=== PATIENT | female | born 1995 | race Caucasian/White ===

== ENCOUNTER 2017-11-18 07:27 | Inpatient (IN) ==
--- OUTSIDE RECORDS SUMMARY | 2017-11-18 07:34 | External Medical Summary | Continuity of Care Document ---
:1995 Author Organization [facility] Address [address] [place], [place] [id number] Phone Support Name Relationship Address Phone Dianelys Braxton parent [phone] [place] [address] Allergies, Adverse Reactions, Alerts Substance Reaction Severity Status No Known Drug Allergies Unknown Active Medications Medication Instructions Dosage Effective Dates Status Comments (start - stop) 28 mg take 1 tablet by Not Available - Active iron-800 mcg oral route every tablet day Zantac 75 mg take 1 tablet by 75 MG - Active tablet oral route 2 times every day with glass of water as needed Problems Condition Effective Dates (start - stop) Clinical Status Encntr for suprvsn of normal first - preg, third trimester Encounter For Screening For - Streptococcus B 36 weeks gestation of - Encntr for suprvsn of normal first - preg, first trimester Less than 8 weeks gestation of - Encntr for suprvsn of normal first - preg, third trimester 32 weeks gestation of - Irregular Menses Oth related conditions, - second trimester Encntr for suprvsn of normal first - preg, second trimester 26 weeks gestation of - Matern care for oth or susp poor fetl - grth, 2nd tri, unsp 19 weeks gestation of - Low Lying Placenta Nos Or W/out - Hemorrhage, Second Trimester 30 weeks gestation of - Low Lying Placenta Nos Or W/out - Hemorrhage, Second Trimester Encntr for suprvsn of normal first - preg, second trimester 19 weeks gestation of - Low Lying Placenta Nos Or W/out - Hemorrhage, Second Trimester 28 weeks gestation of - Low Lying Placenta Nos Or W/out - Hemorrhage, Second Trimester 30 weeks gestation of - Encntr for suprvsn of normal first - preg, first trimester Less than 8 weeks gestation of - Encntr for suprvsn of normal first - preg, first trimester 10 weeks gestation of - Encntr for suprvsn of normal first - preg, second trimester 14 weeks gestation of - Encntr for suprvsn of normal first - preg, second trimester 23 weeks gestation of - Encntr for suprvsn of normal first - preg, third trimester 37 weeks gestation of - Encntr for suprvsn of normal first - preg, third trimester 34 weeks gestation of - Encntr for suprvsn of normal first - preg, third trimester 38 weeks gestation of - Dysmenorrhea, Secondary - Active Procedures Procedure Date OB Visit No Charge Results Test Name Date and Time Measure Units Reference Range Abnormal Flag Comments Panel Description: Strep Gp B Culture Strep Gp B Negative Negative Centers for Disease Control Culture 11:53:00 and Prevention (CDC) and Indian Congressof Obstetricians and Gynecologists (ACOG) guidelines for prevention ofperinatal group B streptococcal (GBS) disease specify co-collection ofa vaginal and rectal swab specimen to maximize sensitivity of GBSdetection. Per the CDC and ACOG, swabbing both the lower vagina andrectum substantially increases the yield of detection compared withsampling the vagina alone. .Penicillin G, ampicillin, or cefazolin are indicated for intrapartumprophylaxis of GBS colonization. Reflex susceptibilitytesting should be performed prior to use of clindamycin only on GBSisolates from penicillin-allergic women who are considered a high riskfor anaphylaxis. Treatment with vancomycin without additional testingis warranted if resistance to clindamycin is noted. Advance Directives Directive Yes / No Effective Date File Name Unknown Encounters Encounter Practice Location Reason(s) Diagnoses Date Provider Care Team Description For Visit Members Warren [place] Encntr for Oct-2 Blount Referring In Womens suprvsn of normal 1-201 Anne-Marie. Provider: Jacquelyn PEREZ, first preg, third 8 700 [facility] Box [email or web address] weeks Medical [place], 1522, gestation of Center [address] [place] [address], Dr [facility] Yi [place], 120, Center [id number], Chidi [facility] 120, [place], tel:[phone] [place], , [place]. [id number]. tel: tel:[phone] Warren [place] Encntr for Oct- Blount Referring In Womens suprn of normal 4-201 Anne-Marie. Provider: Jacquelyn PEREZ, first preg, third 8 700 [facility] Box [id number] weeks Medical [place], 1522, gestation of Center [address] [place] [address], Dr [facility] [place], 120, [place] [id number], [facility], [place], tel: [phone] [place], , [place]. [id number]. tel: tel:[phone] Warren [place] Encntr for Aug-0 Blount Referring In Womens suprvsn of normal 7-201 Anne-Marie. Provider: Jacquelyn PEREZ, first preg, third 8 700 [facility] Box trimesterEncounte Medical [place], 1522, r For Center [address] [place] [address], Screening For Dr [facility] [place], Streptococcus B36 120, [place] [id number], weeks gestation Chidi [facility] 120, [place] of [place], tel:[phone] [place], , [place]. [id number]. tel: tel:[phone] Warren [place] Encntr for Sep- Blount Referring In Womens suprvsn of normal 4-201 Anne-Marie. Provider: Jacquelyn PEREZ, first preg, third 8 700 [facility] Box [email or web address] weeks Medical [place], 1522, gestation of [address], Dr [facility] Yi [place], 120, Center [id number], Chidi, [facility] 120, [place], tel:[phone] [place], , [place]. [id number]. tel: tel: [phone] Associates [facility] Encntr for Jamie-0 Blount Referring In Womens suprvsn of normal 9-201 Anne-Marie. Provider: Jacquelyn PEREZ, first preg, third 8 700 Anne-Marie [place] PO Box [email or web address] weeks Medical K, 700 1522, gestation of [facility], , [facility] [place], 120, [place] 120, [id number], Chidi [place], [place], [place], tel:[phone]. , [place]. tel: tel: [phone] Associates [facility] Low Lying Ron-2 [place] Referring In Womens Ultrasound Placenta Nos Or 5-201 Anne-Marie. Provider: Jacquelyn PEREZ, W/out Hemorrhage, 8 700 Yuniel PO Box Second Medical [place], 1522, [email or web address] weeks Center [address] [place] [address], gestation of Dr [place] Yi [place], 120, [place] [id number], Chidi [facility] 120, [place], tel:[phone] [place], , [place]. [id number]. tel: tel: [phone] [facility] Low Lying Ron-2 Blount Referring In Womens Placenta Nos Or 5-201 Anne-Marie. Provider: Jacquelyn PEREZ, W/out Hemorrhage, 8 700 Yuniel PO Box Second Medical [place], 1522, [id number], gestation of [place] Prasad [place], 120, Center [id number], Chidi [facility] 120, [place], tel:[phone] [place], , [place]. [id number]. tel: tel: [phone] [facility] Low Lying Ron-1 Blount Referring In Womens Placenta Nos Or 2-201 Anne-Marie. Provider: Jacquelyn PEREZ, W/out Hemorrhage, 8 700 Yuniel PO Box Second Medical [place], 1522, [email or web address] weeks Center 700 [place], gestation of [place] Pr[place], 120, Center , [place] 120, [place], Chidi, tel:[phone] [place], , [place]. [id number]. tel: tel:[phone] [facility] Oth May-2 [place] In Womens related 9- Anne-Marie. [facility] [place], conditions, 8 700 PO Box second Medical 1522, trimesterEncntr [facility], for suprvsn of [place] Pr[place], normal first 120, [id number], preg, second [place], [place] weeks [place], tel:+ gestation [phone] , [place]. tel: [phone] [facility] Encntr for May-0 Blount In Womens suprvsn of normal 8-201 Anne-Marie. [facility] [place], first preg, 8 700 PO Box [facility] Medical 1522, [email or web address] weeks [facility], gestation of [place], 120, [id number], [place], [place], tel:[phone] , [place]. tel: [phone] [facility] Low Lying Apr-0 Bolunt In Womens Placenta Nos Or Anne-Marie. Health CHRIS, W/out Hemorrhage, 8 700 PO Box [facility] Medical 1522, TrimesterEncntr [facility], for suprvsn of [place], normal first 120, [id number], preg, second [place], [place] [email or web address] weeks [place], tel:+ gestation of [phone] , [place]. tel: [phone] [facility] Matern care for Apr-0 [place]ount In Womens Ultrasound oth or susp poor 9- Anne-Marie. Health CHRIS, fetl grth, 2nd 8 700 PO Box tri, [email or web address] weeks Medical 1522, gestation of [facility], [place], 120, [id number], [place], [place], tel:[phone] , [place]. tel: [phone] [facility] Encntr for Mar-0 Blount In Womens suprvsn of normal 7-201 Anne-Marie. Health CHRIS, first preg, 8 700 PO Box second Medical 1522, [email or web address] weeks [facility], gestation of [place], 120, , [place], [place], tel:+ [phone] , [place]. tel: [phone] [facility] Encntr for Feb-0 Blount In Womens suprvsn of normal 7-201 Anne-Marie. Health CHRIS, first preg, first 8 700 PO Box [email or web address] weeks Medical 1522, gestation of [facility], [place], 120, , [place], [place], tel: [phone] , [place]. tel: [phone] [facility] Encntr for Joaquín- Blount In Womens suprvsn of normal 1-201 Anne-Marie. Jacquelyn PEREZ, first preg, first 8 700 PO Box trimesterLess Medical 1522, than 8 weeks [facility], gestation of [place], 120, , [place], [place], tel:[phone] , [place]. tel: [phone] [facility] Encntr for Feb- Blount Referring In Womens suprvsn of normal 7-201 Anne-Marie. Provider: Jacquelyn PEREZ, first preg, first 7 700 Anne-Marie Blount PO Box trimesterLess Medical K, 700 1522, than 8 weeks [facility], gestation of [place] Pr[place], 120, [place] 120, , Chidi [place], [place], [place], tel:[phone]. , [place]. tel: tel: [phone] [facility] Irregular Menses Ron-0 Sobbing In Womens 6-201 Zaheer. Health CHRIS, 7 700 PO Box Medical 1522, [facility], [facility], [place], [address] , 120, [place] Chidi, tel: [place], 114, [place]. tel: [phone] Warren [place] Fe-2 David In Womens 3-201 Allyn. Health CHRIS, 5 700 PO Box Medical 1522, Center Dr Edvin, [place], 120, [id number], [facility] [place], tel:[phone] , [place]. tel: [phone] Family History Family Member Diagnosis Age At Onset No family history of Pulmonary Embolism No family history of Epilepsy Paternal Grandmother Diabetes mellitus No family history of Osteoporosis No family history of Kidney Disease No family history of Ovarian Cancer Maternal Grandmother Lung Disease Father Diabetes mellitus No family history of Thyroid Disorder No family history of Venous Thrombosis No family history of Colon Cancer Maternal Grandmother Diabetes mellitus No family history of Hypertension No family history of Breast Cancer Maternal Grandmother Cardiovascular Disease No family history of Uterine Cancer No family history of Stroke Immunizations Vaccine Date Status Comments Tdap completed Source: New Immunization Record Influenza, injectable, completed Source: New Immunization Record quadrivalent, preservative free, 3 yrs or older Payers Payer name Insurance type Covered libertarian ID Authorization(s) [employer] [place] - Medicaid MC [id number] [facility] [id number] Medicaid [employer] [place] Medicaid [place] [id number] [employer] [place] - Medicaid [place] [id number] Social History Type Description Quantity Date Captured Alcohol Use Details No Caffeine Use Details Unknown Tobacco Use Status Unknown Smoking Status Never smoker Vital Signs Date / Height Weight BMI Pulse Blood Temperature Respiratory Body Head BMI Time: Rate Pressure Rate Surface Circumference percentile Area 196.10 36.9 118/70 lbs 3 mm[Hg] 11:36 kg/m AM eter (2) 36 9 11:32 kg/m AM eter (2) Chief Complaint And Reason For Visit Unknown Chief Complaint And Reason For Visit Reason For Referral Reason For Referral Unknown Plan Of Care Date Type Action Status Appointment Irma Quesada BOOKED Future Order: Radiology Order Complete OB Ultrasound > 14 Weeks Ordered ([id number]) Future Order: Radiology Order Ultrasound OB Follow-up ([id number]) Ordered Date Type Problem Goal Intervention Status Start Date Unknown. History Of Present Illness Encounter Date Complaint History Of Present Illness This patient has no known history of present illness Functional Status Encounter Date Functional Assessment Cognitive Assessment Unknown Medications Administered Medication Instructions Dosage Effective Dates (start - stop) Status Comments Drug Treatment Unknown Instructions Date Instruction Additional Information labor signs group B strep screening gestational glucose lab screening HIV and other routine tests risk factors identified by history anticipated course of care nutrition and weight gain counseling, special diet toxoplasmosis precautions (cats / raw meat) exercise indications for ultrasound influenza vaccine environmental / work hazards travel tobacco (ask, advise, assess, assist and arrange) alcohol illicit / recreational drugs use of any medications (including supplements, vitamins, herbs, OTC drugs) smoking counseling domestic violence seat belt use genetic testing new ob handbook Zika virus assessment & precautions dentist, wt gain 20-25#
[2017-11-18] MEDS ORDERED: SALINE FLUSH 10ml SYRINGE IV PRN (07:38)
[2017-11-18] MEDS ORDERED: CARBOPROST 250 MCG/ML INJECTION IM PRN (07:38)
[2017-11-18] MEDS ORDERED: METHYLERGONOVINE 0.2 MG/ML INJECTION IM PRN (07:38)
[2017-11-18] MEDS ORDERED: LIDOCAINE 1% (10mg/ml) 2mL INJ PF SDV ID PRN (07:38)
[2017-11-18] MEDS ORDERED: MAG-AL + SIM ORAL LIQUID 30ml PO PRN (07:38)
[2017-11-18] MEDS ORDERED: ACETAMINOPHEN 500 MG TABLET PO PRN (07:38)
[2017-11-18] MEDS ORDERED: CALCIUM CARBONATE Chewable 500mg TABLET PO PRN (07:38)
[2017-11-18 08:05] VITALS: BMI 37.0
[2017-11-18] MEDS: LR 1,000 ML IV PRN ×3 (08:09→13:29)
[2017-11-18] MEDS ORDERED: NALOXONE 0.4 MG/ML INJECTION IVP PRN (08:40)
[2017-11-18] MEDS ORDERED: ONDANSETRON 4 MG/2 ML INJECTION IVP PRN (08:40)
[2017-11-18] MEDS ORDERED: ROPIVACAINE 1% 10MG/ML INJ 200 MG, SUFentanil 50 MCG in NS 100 ML EPI PRN (08:40)
[2017-11-18] MEDS ORDERED: DiphenhydrAMINE 50 MG/ML INJECTION IVP PRN (08:40)
--- NOTE | 2017-11-18 08:40 | Anesthesia Preoperative Report ---
Anesthesia Epidural/Spinal Rec - Date and Time Date: 11/18/17 Procedure: Labor Epidural Plan: Epidural - Vital Signs /Para: P:0 - Medictaions & Allergies Inpatient Medications: Current Medications Acetaminophen (Tylenol) 500 - 1,000 mg PO Q4H PRN PRN Reason: Pain Al Hydroxide/Mg Hydroxide (Maalox Plus) 30 ml PO Q3H PRN PRN Reason: Indigestion Calcium Carbonate (Tums) 500 - 1,000 mg PO Q2H PRN PRN Reason: Indigestion Carboprost Tromethamine (Hemabate) 250 mcg IM O PRN PRN Reason: .Downtime Lactated Ringer's (Lactated Ringers) 1,000 mls @ 999 mls/hr IV .Q1H1M PRN Last Admin: 11/18/17 08:09 Dose: 999 mls/hr Lidocaine HCl (Xylocaine-Mpf 1% Vial) 0.2 mg ID O PRN PRN Reason: IV Start Methylergonovine Maleate (Methergine) 0.2 mg IM O PRN Misoprostol (Cytotec) 800 mcg CO ONCE PRN Sodium Chloride (Iv Flush) 10 - 80 ml IV PRN PRN PRN Reason: Flushing Allergies/Adverse Reactions: Allergies Allergy/AdvReac Type Severity Reaction Status Date / Time strawberry Allergy Verified 11/14/17 15:51 - Home Medications Home Medications: Home Medications Medication Instructions Recorded Confirmed Type Vit Calc,Iron,Folic 1 tab PO DAILY 11/02/17 11/15/17 History [ Vitamins] raNITIdine HCl [Zantac 75] 75 mg PO DAILY 11/02/17 11/15/17 History Acetaminophen [Tylenol] 500 mg PO O PRN 11/15/17 11/15/17 History Benadryl 25 mg PO Q6H PRN 11/15/17 11/15/17 History - Medical History Respiratory: DENIES: Asthma, Bronchitis, Chronic Obstructive Pulmonary Disease (COPD), Dyspnea, Orthopnea, Pulmonary Embolism, Pneumonia, Upper Respiratory Infection, Pulmonary Edema, Sleep Apnea, Tuberculosis, Other Cardiovascular: DENIES: Abnormal EKG, Angina, Arrhythmia, Congestive Heart Failure, Coronary Artery Disease, Heart Murmur, Hypertension, Hypotension, High Cholesterol, Myocardial Infarction, Rheumatic Fever, Valvular Heart Disease, Other Gastrointestional: Reports: Gastroesophageal Reflux Disease DENIES: Obstructive Bowel, Hepatitis, Cirrhosis, Nausea or Vomiting Present, Gastrointestinal Bleeding, Hiatal Hernia, Ulcer, Morbid Obesity, Other Neuro/Musculoskeletal: Denies: Back Problems, Cerebrovascular Accident, Depression, Headaches, Loss of Consciousness, Muscle Weakness, Neuromuscular Disorder, Paralysis, Paresthesia, Syncope, Seizures, Other Other History: Reports: Now DENIES: Anesthesia Reactions (never has had anesthesia) - Surgical History Anesthesia Reactions: None Hx Family Anesthesia Reaction: No History of Motion Sickness: No - Social History Smoking Status: Never smoker Substance Use Type: does not use Alcohol Intake Frequency: does not drink - Pertinent Findings Lab Data: CBC and BMP 11/18/17 07:43 - Physical Exam Respiratory Exam: lungs clear, bilateral breath sounds equal Cardiovascular Exam: regular rate and rhythm - Airway Assessment Mallampati Score: II TMD: 3 Fingerbreadths Neck Extension: good Overall Assessment: may be difficult intubation - ASA ASA Score: 2 - Discussion Discussion: Discussed risks/options/alternatives of anesthesia and questions answered. Patient consents. Nursing pain assessment noted. Anesthesia Discussion: spouse Attestation Statement: Prior to the delivery of any anesthetic medication, I examined the patient, developed the plan, obtained the patient's consent and discussed the risk and benefits of the procedure with the patient/guardian.
[2017-11-18] MEDS ORDERED: OXYTOCIN DRIP 30 UNIT/500 ML ML IV PRN (09:00)
[2017-11-18] MEDS ORDERED: D5LR 1,000 ML IV PRN (13:27)
[2017-11-18] MEDS ORDERED: HYDROCORTISONE 2.5% CREAM 30gm RECTALLY PRN (14:11)
[2017-11-18] MEDS ORDERED: DiphenhydrAMINE 25 MG CAPSULE PO PRN (14:11)
[2017-11-18] MEDS ORDERED: OXYTOCIN DRIP 30 UNIT/500 ML ML IV SCH (14:15)
--- NOTE | 2017-11-18 15:44 | Labor and Delivery Note ---
DATE OF DELIVERY 11/18/2017 RICK Solis is a 22-year-old 1 at 39 weeks 5 days gestational age who presented to Maternal/Child with contractions and was found to be 7 cm dilated. She received an epidural. Her membranes were ruptured artificially, initially returning clear fluids. Her contractions spaced out, so she was given pitocin augmentation. As the labor progressed and she was pushing, the fluids turned to particulate meconium. She pushed for two and a half hours and had a spontaneous vaginal delivery. There was a tight posterior cord behind the neck that she delivered through. Baby was vigorous at delivery so he was placed on mom's abdomen and the cord clamping was delayed for more than two minutes. The placenta delivered spontaneously. She had a first-degree perineal laceration that was repaired with 2-0 Vicryl. A [id number] was placed in the right periurethral laceration. Baby is a viable male infant, Apgars 8/9, weight 3107 g, name "Iveth." Mom and baby tolerated the delivery well. DANIELLA
[2017-11-18] MEDS: HYDROCODONE/APAP 5mg/325mg TABLET PO PRN ×2 (15:52→22:03)
[2017-11-18] MEDS: IBUPROFEN 800 MG TABLET PO PRN (15:53)
[2017-11-18 19:19] VITALS: RESP 16
[2017-11-19] MEDS: IBUPROFEN 800 MG TABLET PO PRN ×2 (07:50→17:11)
[2017-11-19] MEDS: HYDROCODONE/APAP 5mg/325mg TABLET PO PRN ×2 (07:50→17:11)
--- NOTE | 2017-11-19 08:40 | Anesthesia Postoperative Note ---
- Date and Time Date: 11/19/17 Time: 08:36 - Status Patient Participated in Evaluation: Patient Participated in Person Vital Signs: Temperature 98.1 F 11/18/17 22:00 Pulse Rate 98 11/18/17 22:00 Respiratory Rate 16 11/18/17 22:00 Blood Pressure 122/79 11/18/17 22:00 Pulse Oximetry 98 11/18/17 22:00 Respiratory Function: Airway Patent Cardiovascular Function: Regular Pulse Mental Status: Alert and Oriented Pain Intensity: 0 Hydration: Taking PO Fluids Nausea/Vomiting: None Complications During Recover: None Apparent - Follow-Up Instructions Instructions: Per Surgeon
[2017-11-19] MEDS ORDERED: DOCUSATE CALCIUM 240 MG CAPSULE PO SCH (09:00)
--- NOTE | 2017-11-19 09:27 | OB/GYN Progress Note ---
OB-PP Progress Note - General PPD1 Maternal Group B Strep: Negative Maternal Rh: positive Maternal Rubella Status: Immune - Subjective Date: 11/19/17 Lochia: Minimal Pain: controlled Voiding: voiding Nausea or Vomiting Present: No - Objective Vital Signs: Last Vital Signs Temp 98.3 F 11/19/17 07:40 Pulse 81 11/19/17 07:40 Resp 16 11/19/17 07:40 BP 129/87 11/19/17 07:40 Pulse Ox 97 11/19/17 07:40 Abdomen: fundus firm, non-tender Edema: none - Assessment Assessment: SP, - Plan Plan: routine care Expected date of discharge: 11/19/17
[2017-11-19 15:42] VITALS: BP 136/89; PULSE 88; TEMP 98.1; O2SAT 95
== END 2017-11-19 17:38 | disposition home or self-care (01) | DRG 775 ==
LOC: OBOBS 07:27 → MC 07:30
PROVIDERS: ADMIT Obstetrics & Gynecology; ATTEND Obstetrics & Gynecology